=== PATIENT | male | born 1980 | race Caucasian/White ===

== ENCOUNTER 2019-04-17 22:13 | Emergency (ER) | payer SELFPAY ==
[~2019-04-17] VITALS: Ht 170.2 cm; Wt 74.9 kg
[2019-04-17] MEDS ORDERED: FAMOTIDINE 20 MG (PEPCID) TABLET PO STA (22:27)
[2019-04-17] MEDS ORDERED: ANTACID SUSP 30 ML UDC (MYLANTA) PO ONE (22:30)
[2019-04-17] MEDS ORDERED: LIDOCAINE 2% VISCOUS 15 ML UDC PO ONE (22:30)
[2019-04-17] MEDS ORDERED: NITROGLYCERIN 0.4 MG SL TABS BTL 25'S SL PRN (22:30)
[2019-04-17] MEDS ORDERED: ASPIRIN 81 MG CHEW (CHILDREN'S ASA) PO ONE (22:30)
[2019-04-17] MEDS ORDERED: LORazepam INJ 2 MG/ML (ATIVAN) VIAL IVP ONE (22:30)
[2019-04-17] MEDS ORDERED: ONDANSETRON 4 MG/2 ML (SDV) Z0FRAN IVP ONE (22:30)
--- NOTE | 2019-04-17 23:18 | NUR ---
PT REPORTS THE CHEST PRESSURE HAS STOPPED.
--- NOTE | 2019-04-17 23:36 | ED Chest Pain ---
General Chief Complaint: Chest Pain Stated Complaint: CHEST PAIN Nursing Triage Note: PT AMBULATE TO ROOM FS05 WITH C/O CHEST PAIN AND TACHYCARDIA STARTING X2 HOURS AGO. PT STATES HE BELIEVES THE PAIN IS DUE TO AN ORAL ABSCESS. PT REPORTS HX OF THIS TYPE OF PAIN AND THAT IT WOULD GO AWAY ON ITS OWN. PT REPORTS HE HAS NOT SOUGHT TX PREVIOUSLY BECAUSE HE DOES NOT HAVE ANY HEALTH INSURANCE. Nursing Sepsis Screen: No Definite Risk Source: patient, family (mil) Exam Limitations: no limitations History of Present Illness Date Seen by Provider: Apr 17, 2019 Time Seen by Provider: 22:10 Initial Comments patient presents to ER by private conveyance with chief complaint of pressure in his chest indicating his epigastric region. He says been going on for about 4 hours or to arrival and he's had it before but it spontaneously will go away. He was waiting out but did not leave so he decided come the ER to get checked out. About half an hour prior to arrival he started having shakes. He denies a history of anxiety or heart disease. He does have familial history of mom dying at age 60 from heart disease. He does not follow with a doctor so he is not sure about his medical history. Does not take any medications routinely. He did not try anything for his symptoms today. He denies recreational drug use but he does have a history of smoking up until about 3 months ago when he quit because he was getting palpitations. He felt some racing heart rate and palpitations in his chest tonight. He's never had any workup for his heart. He does not have any shortness of breath. He quit drinking many years ago. Allergies and Home Medications Allergies Coded Allergies: No Known Drug Allergies (Unverified , 04/17/19) Patient Home Medication List Home Medication List Reviewed: Yes Review of Systems Review of Systems Constitutional: No chills, No diaphoresis EENTM: No Blurred Vision, No Double Vision Respiratory: Denies Cough, Denies Shortness of Air Cardiovascular: See HPI; Denies Chest Pain, Denies Lightheadedness; Palpitations; Denies Syncope Gastrointestinal: Denies Abdomen Distended, Denies Abdominal Pain, Denies Constipated, Denies Diarrhea; Nausea Genitourinary: Denies Burning, Denies Discharge Musculoskeletal: No back pain, No joint pain All Other Systems Reviewed Negative Unless Noted: Yes Past Yixsxeo-[id number]-[id number] Hx Patient Social History Alcohol Use: Denies Use Recreational Drug Use: No (USED TO SMOKE POT) Smoking Status: Former Smoker Type Used: Cigars 2nd Hand Smoke Exposure: Yes Recent Foreign Travel: No Contact w/Someone Who Travel: No Recent Infectious Disease Expo: No Recent Hopitalizations: No Physical Abuse: No Sexual Abuse: No Mistreated: No Fear: No Seasonal Allergies Seasonal Allergies: No Past Medical History Surgeries: Yes (DEVIATED SEPTUM) Respiratory: No Cardiac: No Neurological: Yes (SEIZURE X1 THREE YEARS AGO) Genitourinary: No Gastrointestinal: No Musculoskeletal: No Endocrine: No HEENT: No Cancer: No Psychosocial: Yes (ADHD A CHILD) Integumentary: No Blood Disorders: No Physical Exam Vital Signs Vital Signs - First Documented 04/17/19 22:17 Temp 36.5 Pulse 96 Resp 21 B/P (MAP) 142/88 (106) O2 Delivery Room Air Capillary Refill : NONE Height, Weight, BMI Height: '" Weight: lbs. oz. kg; 25.00 BMI Method: General Appearance: Anxious, Other (disheveled) HEENT: PERRL/EOMI, Pharynx Normal, Moist Mucous Membranes Neck: Full Range of Motion, Normal Inspection Respiratory: Chest Non Tender, Lungs Clear, Normal Breath Sounds, No Accessory Muscle Use, No Respiratory Distress Cardiovascular: Regular Rate, Rhythm, No Edema, No Gallop, No JVD, No Murmur, Normal Peripheral Pulses Gastrointestinal: Normal Bowel Sounds, Non Tender, Soft, Other (negative for mesenteric signs, psoas sign, Rovsing or McBurney's point tenderness, Malik's sign.) Neurologic/Psychiatric: Alert, Oriented x3 Skin: Normal Color, Warm/Dry Progress/Results/Core Measures Results/Orders Lab Results Laboratory Tests Test 04/17/19 22:34 04/17/19 22:50 04/18/19 01:27 Range/Units White Blood Count 9.8 4.3-11.0 10^3/uL Red Blood Count 4.27 L 4.35-5.85 10^6/uL Hemoglobin 13.4 13.3-17.7 G/DL Hematocrit 38 L 40-54 % Mean Corpuscular Volume 89 80-99 FL Mean Corpuscular Hemoglobin 31 25-34 PG Mean Corpuscular Hemoglobin Concent 35 32-36 G/DL Red Cell Distribution Width 12.1 10.0-14.5 % Platelet Count 278 130-400 10^3/uL Mean Platelet Volume 10.1 7.4-10.4 FL Neutrophils (%) (Auto) 61 42-75 % Lymphocytes (%) (Auto) 31 12-44 % Monocytes (%) (Auto) 7 0-12 % Eosinophils (%) (Auto) 1 0-10 % Basophils (%) (Auto) 1 0-10 % Neutrophils # (Auto) 6.0 1.8-7.8 X 10^3 Lymphocytes # (Auto) 3.0 1.0-4.0 X 10^3 Monocytes # (Auto) 0.6 0.0-1.0 X 10^3 Eosinophils # (Auto) 0.1 0.0-0.3 10^3/uL Basophils # (Auto) 0.1 0.0-0.1 10^3/uL Prothrombin Time 13.1 12.2-14.7 SEC INR Comment 1.0 0.8-1.4 Activated Partial Thromboplast Time 31 24-35 SEC Sodium Level 136 135-145 MMOL/L Potassium Level 3.1 L 3.6-5.0 MMOL/L Chloride Level 98 98-107 MMOL/L Carbon Dioxide Level 23 21-32 MMOL/L Anion Gap 15 H 5-14 MMOL/L Blood Urea Nitrogen 11 7-18 MG/DL Creatinine 0.74 0.60-1.30 MG/DL Estimat Glomerular Filtration Rate > 60 BUN/Creatinine Ratio 15 Glucose Level 187 H 70-105 MG/DL Calcium Level 9.5 8.5-10.1 MG/DL Corrected Calcium 8.5-10.1 MG/DL Magnesium Level 1.6 1.6-2.4 MG/DL Total Bilirubin 0.3 0.1-1.0 MG/DL Aspartate Amino Transf (AST/SGOT) 25 5-34 U/L Alanine Aminotransferase (ALT/SGPT) 16 0-55 U/L Alkaline Phosphatase 72 40-136 U/L Myoglobin < 21.0 10.0-92.0 NG/ML Troponin I < 0.30 < 0.30 <0.30 NG/ML Pro-B-Type Natriuretic Peptide < 5.0 <75.0 PG/ML Total Protein 7.5 6.4-8.2 GM/DL Albumin 4.8 H 3.2-4.5 GM/DL Lipase 34 8-78 U/L Urine Color PALE YELLOW Urine Clarity CLEAR Urine pH 6.5 5-9 Urine Specific Omer <=1.005 1.016-1.022 Urine Protein NEGATIVE NEGATIVE Urine Glucose (UA) NEGATIVE NEGATIVE Urine Ketones NEGATIVE NEGATIVE Urine Nitrite NEGATIVE NEGATIVE Urine Bilirubin NEGATIVE NEGATIVE Urine Urobilinogen 0.2 < = 1.0 MG/DL Urine Leukocyte Esterase NEGATIVE NEGATIVE Urine RBC (Auto) NEGATIVE NEGATIVE Urine RBC NONE /HPF Urine WBC RARE /HPF Urine Squamous Epithelial Cells NONE /HPF Urine Crystals NONE /LPF Urine Bacteria NEGATIVE /HPF Urine Casts NONE /LPF Urine Mucus NONE /LPF Urine Culture Indicated NO Urine Opiates Screen NEGATIVE NEGATIVE Urine Oxycodone Screen NEGATIVE NEGATIVE Urine Methadone Screen NEGATIVE NEGATIVE Urine Propoxyphene Screen NEGATIVE NEGATIVE Urine Barbiturates Screen NEGATIVE NEGATIVE Ur Tricyclic Antidepressants Screen NEGATIVE NEGATIVE Urine Phencyclidine Screen NEGATIVE NEGATIVE Urine Amphetamines Screen NEGATIVE NEGATIVE Urine Methamphetamines Screen NEGATIVE NEGATIVE Urine Benzodiazepines Screen NEGATIVE NEGATIVE Urine Cocaine Screen NEGATIVE NEGATIVE Urine Cannabinoids Screen NEGATIVE NEGATIVE My Orders Orders - LEONARDO OLIVAS Continuous Ekg Monitoring (04/17/19 22:14) Ekg Tracing (04/17/19 22:14) Cbc With Automated Diff (04/17/19 22:24) Magnesium (04/17/19 22:24) Chest 1 View Ap/Pa Only (04/17/19 22:24) Comprehensive Metabolic Panel (04/17/19 22:24) Myoglobin Serum (04/17/19 22:24) Protime With Inr (04/17/19 22:24) Partial Thromboplastin Time (04/17/19 22:24) O2 (04/17/19 22:24) Lipid Panel (04/18/19 06:00) Ed Iv/Invasive Line Start (04/17/19 22:24) Creatine Kinase (04/17/19 22:24) Lipase (04/17/19 22:24) Troponin I Fs (04/17/19 22:24) Probnp Fs (04/17/19 22:24) Ondansetron Injection (Zofran Injectio (04/17/19 22:30) Lidocaine 2% Viscous 15 Ml (Xylocaine Vi (04/17/19 22:30) Famotidine Tablet (Pepcid Tablet) (04/17/19 22:27) Antacid Suspension (Mylanta Suspension (04/17/19 22:30) Nitroglycerin 0.4 Mg Btl 25's (Nitrostat (04/17/19 22:30) Aspirin Chewable Tablet (Baby Aspirin Ch (04/17/19 22:30) Lorazepam Injection (Ativan Injection) (04/17/19 22:30) Ua Culture If Indicated (04/17/19 23:36) Drug Screen Stat (Urine) (04/17/19 23:36) Troponin I Fs (04/18/19 01:30) Medications Given in ED Current Medications Medications Dose Ordered Sig/Shaina Route Start Time Stop Time Status Last Admin Dose Admin Aspirin 324 mg ONCE ONCE PO 04/17/19 22:30 04/17/19 22:31 DC 04/17/19 23:02 324 MG Lorazepam 0.5 mg ONCE ONCE IVP 04/17/19 22:30 04/17/19 22:31 DC 04/17/19 23:02 0.5 MG Nitroglycerin 0.4 mg NEEDED PRN SL 04/17/19 22:30 04/17/19 23:02 0.4 MG Ondansetron HCl 4 mg ONCE ONCE IVP 04/17/19 22:30 04/17/19 22:31 DC 04/17/19 23:02 4 MG Vital Signs/I&O 04/17/19 04/17/19 22:17 22:22 Temp 36.5 Pulse 96 Resp 21 B/P (MAP) 142/88 (106) O2 Delivery Room Air Room Air Blood Pressure Mean: 106 Progress Progress Note #1: Time: 22:30 Progress Note Chest pain workup. We'll trial some nitroglycerin and give him half a milligram Ativan IV for his tremors. He denies being cold. Could be from anxiety. If this doesn't work we'll try a GI cocktail. Pepcid and Zofran for his nausea. There is a lot of artifact in the first EKG so we will repeat it momentarily. Progress Note #2: Time: 23:15 Progress Note Pepcid nitroglycerin were given which took away his chest/epigastric pressure. Ativan was given but his tremors had pretty much subsided by then. He is resting peacefully without discomfort. Given his recent history of smoking and potentially family history of coronary disease he would've to risk factors and a Heart score of 2 points. Low risk; 0.91.7% 30-day MACE; Repeat troponin at 3 hours (0130) and if negative, discharge home with outpatient follow-up with Dr. Mueller. Initial ECG Impression Date: Apr 17, 2019 Initial ECG Impression Time: 22:15 Initial ECG Rate: 89 Initial ECG Rhythm: Normal Sinus Initial ECG Intervals: Normal Initial ECG Impression: Normal Initial ECG Comparisson: No Previous ECG Available Comment Sinus rhythm, no clinically relevant ST elevation or depression. Moderate amount of artifact Secondary to tremor. EKG : EKG Time: 22:26 Rate: 74 Rhythm: Normal Sinus Intervals: Normal ECG Comparisson: Unchanged ECG Impression: Normal Comment Normal sinus rhythm without clinically relevant ST elevation or depression. Diagnostic Imaging Diagonstic Imaging: Xray Plain Films/CT/US/NM/MRI: chest (1v) Comments No acute cardiopulmonary processes noted on one view chest x-ray. 10, nearly 11 ribs above the diaphragm, borderline hyperinflated appearance. Radiology read pending Reviewed: Reviewed by Me Departure Impression Primary Impression: Chest pain Qualified Codes: R07.9 - Chest pain, unspecified Disposition: 01 HOME, SELF-CARE Condition: Improved Departure-Patient Inst. Decision time for Depature: 01:55 Referrals: GIOVANI MUELLER MD UNKNOWN (PCP) Primary Care Physician Patient Instructions: Chest Pain (DC) Add. Discharge Instructions: While you do not appear to be having a heart attack tonight we are not certain that you do not have something wrong with the vessels supplying your heart. Given your history of risk factors (recent smoking and your mother's heart history) as well as many unknown risk factors more workup needs to be done over the next few days. Call Dr. Mueller, cardiology and request follow-up appointment in the next 1-2 days for further evaluation. Return to the ER if you begin to have shortness of breath or chest pain. Establish care with a primary care physician. Continue to not smoke. All discharge instructions reviewed with patient and/or family. Voiced understanding. Work/School Note: Work Release Form Date Seen in the Emergency Department: Apr 18, 2019 Return to Work: Apr 20, 2019 Restrictions: Need Release from Doctor Copy Copies To 1: GIOVANI MUELLER MD, TITUS J Apr 17, 2019 23:36
[2019-04-17 23:37] LABS: BASOPHILS % (AUTO) 1 % (0-10); EOSINOPHILS % (AUTO) 1 % (0-10); HEMATOCRIT 38 % (40-54); HEMOGLOBIN 13.4 G/DL (13.3-17.7); LYMPHOCYTES % (AUTO) 31 % (12-44); MEAN CORPUSCULAR HEMOGLOBIN 31 PG (25-34); MEAN CORPUSCULAR HGB CONC 35 G/DL (32-36); MEAN CORPUSCULAR VOLUME 89 FL (80-99); MEAN PLATELET VOLUME 10.1 FL (7.4-10.4); MONOCYTES % (AUTO) 7 % (0-12); NEUTROPHILS % (AUTO) 61 % (42-75); PLATELET COUNT 278 10^3/uL (130-400); RED CELL DISTRIBUTION WIDTH 12.1 % (10.0-14.5); WHITE BLOOD COUNT 9.8 10^3/uL (4.3-11.0)
[2019-04-17 23:38] LABS: BASOPHILS # (AUTO) 0.1 10^3/uL (0.0-0.1); EOSINOPHILS # (AUTO) 0.1 10^3/uL (0.0-0.3); MONOCYTES # (AUTO) 0.6 X 10^3 (0.0-1.0)
[2019-04-17 23:40] LABS: CARBON DIOXIDE 23 MMOL/L (21-32); CHLORIDE 98 MMOL/L (98-107); POTASSIUM 3.1 MMOL/L (3.6-5.0); SODIUM 136 MMOL/L (135-145)
[2019-04-17 23:41] LABS: ALANINE AMINOTRANSFERASE 16 U/L (0-55); BILIRUBIN,TOTAL 0.3 MG/DL (0.1-1.0); BUN/CREATININE RATIO 15; CALCIUM 9.5 MG/DL (8.5-10.1); CREATININE SERUM 0.74 MG/DL (0.60-1.30); GFR ESTIMATED > 60; GLUCOSE 187 MG/DL (70-105); MAGNESIUM 1.6 MG/DL (1.6-2.4); TOTAL PROTEIN 7.5 GM/DL (6.4-8.2)
[2019-04-17 23:42] LABS: ALBUMIN 4.8 GM/DL (3.2-4.5); ALKALINE PHOSPHATASE 72 U/L (40-136); LIPASE 34 U/L (8-78); PROTHROMBIN TIME PATIENT 13.1 SEC (12.2-14.7)
[2019-04-17 23:44] LABS: BILIRUBIN,URINE NEGATIVE (NEGATIVE); CLARITY,URINE CLEAR; COLOR,URINE PALE YELLOW; GLUCOSE, URINE (UA) NEGATIVE (NEGATIVE); KETONES,URINE NEGATIVE (NEGATIVE); NITRITE,URINE NEGATIVE (NEGATIVE); PH,URINE 6.5 (5-9); PROTEIN,URINE NEGATIVE (NEGATIVE)
[2019-04-17 23:45] LABS: AMPHETAMINE SCREEN, URINE NEGATIVE (NEGATIVE); BACTERIA,URINE NEGATIVE /HPF; BARBITURATE SCREEN URINE NEGATIVE (NEGATIVE); BENZODIAZEPINES SCREEN URINE NEGATIVE (NEGATIVE); CANNABINOID SCREEN, URINE NEGATIVE (NEGATIVE); COCAINE SCREEN URINE NEGATIVE (NEGATIVE); LEUKOCYTE ESTERASE ,URINE NEGATIVE (NEGATIVE); METHADONE STAT NEGATIVE (NEGATIVE); METHAMPHETAMINE SCREEN URINE S NEGATIVE (NEGATIVE); OPIATE SCREEN URINE NEGATIVE (NEGATIVE); OXYCODONE STAT NEGATIVE (NEGATIVE); PROPOXYPHENE STAT NEGATIVE (NEGATIVE); TRICYCLIC ANTIDEPRESSANTS SCRE NEGATIVE (NEGATIVE); WBC,URINE RARE /HPF
[2019-04-18 02:04] VITALS: BP 147/82
--- NOTE | 2019-04-18 06:45 | Diagnostic Imaging Report ---
INDICATION: Chest pain COMPARISON: None. FINDINGS: Frontal view of the chest demonstrates clear lungs bilaterally. The heart size is normal. There is no pneumothorax. Osseous structures are normal. IMPRESSION: No acute findings. Normal chest. Dictated by: Dictated on workstation # [id number]
[2019-04-18 13:51] LABS: CREATINE KINASE 166 U/L (30-200)
[2019-04-18 14:37] LABS: CHOLESTEROL 150 MG/DL (< 200); HDL CHOLESTEROL 61 MG/DL (40-60); TRIGLYCERIDES 130 MG/DL (<150); VLDL CHOLESTEROL 26 MG/DL (5-40)
== END 2019-04-18 02:04 | disposition home or self-care (01) ==
LOC: ER FS 22:16
DX: R07.89 Other chest pain (principal); F41.9 Anxiety disorder, unspecified; F90.9 Attention-deficit hyperactivity disorder, unspecified type; Z87.891 Personal history of nicotine dependence
CPT/HCPCS: 36415; 71045; 80053; 80061; 80306; 81000; 82550; 83690; 83735; 83874; 83880; 84484; 85025; 85610; 85730; 93005; 96374; 96375